=== PATIENT | female | born 1950 | race Caucasian/White ===

== ENCOUNTER 2018-05-22 10:28 | Emergency (ER) | payer MEDICARE, OTHER ==
[~2018-05-22] VITALS: Ht 160 cm; Wt 65.5 kg
[2018-05-22 10:31] VITALS: TEMP 98.5
[2018-05-22] MEDS ORDERED: GLUCOPHAGE500 MG/TAB (10:54)
[2018-05-22] MEDS ORDERED: LIPITOR 40MG TA40 MG (10:59)
[2018-05-22] MEDS ORDERED: SINGULAIR 110 MG/TAB (11:00)
[2018-05-22] MEDS ORDERED: AMBIEN 10MG10 MG (11:00)
[2018-05-22] MEDS ORDERED: NORVASC 5MG5 MG/TAB (11:00)
[2018-05-22] MEDS ORDERED: DESYREL 100MG100 MG (11:01)
[2018-05-22] MEDS ORDERED: SYNTHROID 0.0.025 MG (11:01)
[2018-05-22 11:12] LABS: BASO # 0.1 (0.0-0.2); BASO % 0.3 % (0.0-2.0); EOS # 0.2 (0.0-0.7); EOS % 1.3 % (0-4.0); GRAN # 9.5 (1.4-6.5); GRAN % 62.7 % (42.2-75.2); HEMATOCRIT 39.3 % (37.0-47.0); HEMOGLOBIN 13.3 g/dl (12.5-16.0); LYMPH # 3.8 (1.2-3.4); LYMPH % 25.3 % (20.0-51.0); MEAN CELL VOLUME 94 fl (80.0-100.0); MEAN CORPUSCULAR HEMOGLOBIN 32 pg (27.0-31.0); MEAN CORPUSCULAR HGB CONC 34 g/dl (33.0-37.0); MEAN PLATELET VOLUME 9.3 fl (7.4-10.4); MONO # 1.5 (0.1-0.6); MONO % 9.7 % (1.7-9.3); PLATELET COUNT 254 K/mm3 (130-400); REDCELL DISTRIBUTION WIDTH-CV 13.7 % (11.5-14.5)
[2018-05-22 11:21] LABS: ALANINE AMINOTRANSFERASE 22 U/L (9-52); ALBUMIN 3.9 gm/dL (3.5-5.0); ALCOHOL(ethanol),MEDICAL 31 mg/dL; ALKALINE PHOSPHATASE 77 U/L (50-136); ANION GAP 13 mmol/L (7-16); AST,SGOT 33 U/L (15-37); BILIRUBIN,TOTAL 0.2 mg/dL (0.0-1.0); BLOOD UREA NITROGEN 7 mg/dL (7-17); CALCIUM 9.2 mg/dL (8.4-10.2); CARBON DIOXIDE 22 mmol/L (22-30); CHLORIDE 105 mmol/L (98-107); CREATININE, serum 0.47 mg/dL (0.52-1.25); GLUCOSE 106 mg/dL (74-106); POTASSIUM 3.8 mmol/L (3.4-5.0); SODIUM 139 mmol/L (137-145); TOTAL PROTEIN 6.2 gm/dL (6.4-8.2)
[2018-05-22 11:25] LABS: C-REACTIVE PROTEIN < 0.5 mg/dL (0.0-0.9)
[2018-05-22 13:37] LABS: COLLECTION METHOD CLEAN CATCH
[2018-05-22 13:46] LABS: PH 5 (5-8); SQUAMOUS EPITHELIAL 0-2 /hpf; URINE APPEARANCE Clear; URINE BACTERIA None Seen /hpf; URINE BILIRUBIN Negative (NEGATIVE); URINE BLOOD Negative (NEGATIVE); URINE COLOR Straw; URINE GLUCOSE Negative (NEGATIVE); URINE KETONE Negative (NEGATIVE); URINE LEUKOCYTE ESTERASE Negative (NEGATIVE); URINE NITRATE Negative (NEGATIVE); URINE PROTEIN(semi-quant) Negative (NEGATIVE); URINE RBC None Seen /hpf; URINE UROBILINOGEN Negative (NEGATIVE)
[2018-05-22] MEDS ORDERED: NORCO 325 MG-51 TAB PO (15:21)
[2018-05-22 15:35] VITALS: BP 136/85; PULSE 94
== END 2018-05-22 15:37 | disposition home or self-care (01) ==
LOC: COL.ER 10:28
PROVIDERS: Physician Assistant
DX: S93.602A Unspecified sprain of left foot, initial encounter (principal); S93.601A Unspecified sprain of right foot, initial encounter; S30.0XXA Contusion of lower back and pelvis, initial encounter; S50.811A Abrasion of right forearm, initial encounter; F10.129 Alcohol abuse with intoxication, unspecified; E78.5 Hyperlipidemia, unspecified; E03.9 Hypothyroidism, unspecified; J44.9 Chronic obstructive pulmonary disease, unspecified; E11.9 Type 2 diabetes mellitus without complications; I10 Essential (primary) hypertension; F17.210 Nicotine dependence, cigarettes, uncomplicated; Z79.84 Long term (current) use of oral hypoglycemic drugs; W19.XXXA Unspecified fall, initial encounter; Y92.009 Unspecified place in unspecified non-institutional (private) residence as the place of occurrence of the external cause; Y90.1 Blood alcohol level of 20-39 mg/100 ml
CPT/HCPCS: J1885; J2060; J2270; J2405; J7030